=== PATIENT | male | born 1985 | race Caucasian/White ===

== ENCOUNTER 2018-03-08 07:09 | Emergency (ER) | payer SELFPAY ==
[2018-03-08 07:16] VITALS: BP 130/83; PULSE 73; RESP 20; TEMP 36.8; O2SAT 99; BMI 20.7
--- NOTE | 2018-03-08 07:28 | ED.DENTAL ---
HPI - Dental/Oral General Chief complaint: Dental/Oral Stated complaint: face/lip swollen thinks maybe tooth infection Time Seen by Provider: 03/08/18 07:19 Source: patient Mode of arrival: ambulatory Limitations: no limitations History of Present Illness HPI Narrative: Patient is a 32-year-old male who presents with a facial swelling. He said he has had some in front dental pain the last 3 days however last night he started feeling like his face was swollen. This morning he woke up and his entire upper lip spreading up into his his cheek bones is quite swollen. He has not had any fever. No difficulty breathing. He has been taking ibuprofen without much relief MD Complaint: tooth pain Location: Tooth # (7) Duration: constant Severity: moderate Relieving factors: nothing Context: history of dental caries Treatment prior to arrival: none Related Data Home Medications Medication Instructions Recorded Confirmed aspirin 325 mg PO PRN #0 08/27/11 Previous Rx's Medication Instructions Recorded amoxicillin-pot clavulanate 1 tab PO Q12H #14 tab 03/08/18 [Augmentin] Allergies Allergy/AdvReac Type Severity Reaction Status Date / Time No Known Drug Allergies Allergy Verified 03/08/18 07:36 Review of Systems Review of Systems All systems reviewed & are unremarkable except as noted in HPI and below Constitutional Denies chills, Denies fever(s), Denies lethargy and Denies weakness ENT Ears, Nose, Mouth, and Throat: Reports as per HPI, Reports facial pain and Reports lip swelling Cardiovascular Denies chest pain, Denies irregular heart rhythm, Denies lightheadedness, Denies palpitations, Denies dyspnea, Denies dyspnea on exertion and Denies orthopnea Respiratory Denies cough, Denies dyspnea, Denies dyspnea on exertion and Denies wheezing Gastrointestinal Gastrointestinal: Denies abdominal pain, Denies change in bowel habits, Denies diarrhea, Denies nausea and Denies vomiting Musculoskeletal Denies back pain, Denies muscle weakness, Denies numbness and Denies tingling Integumentary/Breasts Denies pruritus, Denies erythema, Denies rash and Denies wounds Neurologic Denies numbness, Denies tingling and Denies weakness Endocrine Denies palpitations Allergic/Immunologic Reports lip swelling and Denies wheezing PFSH Family History Mother Age: 55 Diabetes mellitus Social History Smoking Status: Current every day smoker alcohol intake: current substance use type: marijuana Exam Initial Vital Signs Initial Vital Signs: Vital Signs Temperature 98.2 F 03/08/18 07:16 Pulse Rate 73 03/08/18 07:16 Respiratory Rate 20 03/08/18 07:16 Blood Pressure 130/83 03/08/18 07:16 Pulse Oximetry 99 12 07:16 GENERAL: Well-appearing, well-nourished and in no acute distress. HEENT: Head atraumatic,EOMI, pupils reactive, right upper lip swollen with swelling spreading of to just below the eye no erythema no dental abscess appreciated though he does have multiple dental caries on lower part. No trismus. CARDIOVASCULAR: Regular rate and rhythm without murmurs, rubs or gallops. RESPIRATORY: Breath sounds equal bilaterally, no wheezes rales or rhonchi. No stridor ABDOMEN: Soft, nontender. : No CVA tenderness EXTREMITIES: Normal range of motion, no clubbing or edema. Neurovascularly intact NEUROLOGICAL: Alert and oriented x4.Normal gait and speech. Cranial nerves II through XII grossly intact. SKIN: Warm, dry, no laceration, no petechiae, no rashes or lesions. Course Orders Ordered: ED Orders 03/08/18 07:30 Basic Metabolic Panel Stat Complete Blood Count AUTO DIFF Stat Discontinued Medications Dexamethasone (Decadron) 10 mg IV NOW ONE Stop: 03/08/18 07:26 Last Admin: 03/08/18 07:37 Dose: 10 mg Ampicillin Sodium/Sulbactam (Sodium 3 gm/ Sodium Chloride) 100 mls @ 100 mls/hr IV NOW ONE Stop: 03/08/18 07:26 Last Infusion: 03/08/18 08:45 Dose: 0 mls/hr Admin: 03/08/18 07:37 Dose: 100 mls/hr Vital Signs - 8 hr 03/08/18 07:16 03/08/18 08:46 Temperature 98.2 F Pulse Rate 73 88 Respiratory Rate 20 20 Blood Pressure 130/83 126/77 Pulse Oximetry 99 100 [facility] - Dental/Oral Lab Data Attestation: I reviewed the patient's lab results. Result diagrams: 03/08/18 07:30 03/08/18 07:30 Lab Results 03/08/18 03/08/18 Range/Units 07:30 07:30 WBC 14.0 H (4.5-11.0) X10^3/uL RBC 4.46 L (4.5-5.9) X10^6/uL Hgb 13.9 (13.5-17.5) g/dL Hct 41.7 (41-53) % MCV 93.5 (80-100) fL MCH 31.1 (26-34) PG MCHC 33.3 (30-36) % RDW 13.3 (11.6-14.8) % Plt Count 201 (150-400) X10^3/uL Neut % (Auto) 78.2 H (50-75) % Lymph % (Auto) 10.1 L (25-40) % [place] % (Auto) 8.8 (3-14) % Eos % (Auto) 2.4 (2-4) % Baso % (Auto) 0.5 (0-2) % Neut # (Auto) 19294 H (7537-0016) /uL Sodium 139 (137-145) mmol/L Potassium 4.0 (3.4-5.1) mmol/L Chloride 103 (98-107) mmol/L Carbon Dioxide 27 (22-32) mmol/L BUN 8 L (9-20) mg/dL Creatinine 0.80 (0.66-1.25) mg/dL Estimated GFR > 60.0 (>60) mL/min BUN/Creatinine Ratio 10.0 (6-22) Glucose 110 H (70-100) mg/dL Calcium 9.1 (8.4-10.2) mg/dL Discharge Plan Departure Patient Disposition: Home Clinical Impression: Dental abscess Discharge Date/Time: 03/08/18 08:47 Interventions: ED Discharge Assessment Last Done: 03/08/18 08:46 Instructions: Tooth Abscess Activity Restrictions/Additional Instructions: *You have been diagnosed with dental abscess *What to do: Facial swelling is likely from a tooth infection. It should start to improve in the next 1-2 days *Continue to take medications as directed: FAXED TO [facility] [place] Augmentin 875 twice a day for 7 days Motrin 800 mg every 8 hr with food *Follow up with your primary care provider in 2-3 days *Return to ER if you should have worsening swelling, redness, difficulty breathing or any new, worsening or concerning symptoms Prescriptions: New amoxicillin-pot clavulanate [Augmentin] 875-125 mg tablet 1 tab PO Q12H Qty: 14 RF: 0 No Action aspirin 325 MG tablet,delayed release (DR/EC) 325 mg PO PRN Qty: 0 RF: 0
[2018-03-08] MEDS: DEXAMETHASONE 10 MG/ML VIAL IV (07:37)
[2018-03-08] MEDS: AMPICILLIN/SULBACTAM 3 GM 3 GM in SODIUM CHLORIDE 0.9% 100 ML IV (07:37)
[2018-03-08 07:42] LABS: Add Manual Diff / Slide Review NO; Basophils Percent Auto 0.5 % (0-2); Eosinophils Percent Auto 2.4 % (2-4); Hematocrit 41.7 % (41-53); Hemoglobin 13.9 g/dL (13.5-17.5); Lymphocytes Percent Auto 10.1 % (25-40); Mean Corpuscular HGB Conc 33.3 % (30-36); Mean Corpuscular Hemoglobin 31.1 PG (26-34); Mean Corpuscular Volume 93.5 fL (80-100); Monocytes Percent Auto 8.8 % (3-14); Neutrophils Absolute Auto 10900 /uL (3000-5900); Neutrophils Percent Auto 78.2 % (50-75); Platelet Count 201 X10^3/uL (150-400); Red Blood Cell Count 4.46 X10^6/uL (4.5-5.9); Red Cell Distribution Width 13.3 % (11.6-14.8)
[2018-03-08 07:52] LABS: Blood Urea Nitrogen 8 mg/dL (9-20); Calcium 9.1 mg/dL (8.4-10.2); Carbon Dioxide 27 mmol/L (22-32); Chloride 103 mmol/L (98-107); Estimated Glomerular Filt Rate > 60.0 mL/min (>60); Glucose 110 mg/dL (70-100); HEMOLYSIS < 15 (0-50); Sodium 139 mmol/L (137-145)
[2018-03-08 08:46] VITALS: BP 126/77; PULSE 88; RESP 20; O2SAT 100
== END 2018-03-08 08:47 | disposition home or self-care (01) ==
PROVIDERS: Emergency Provider Emergency Medicine
DX: K04.7 Periapical abscess without sinus (principal)
CPT/HCPCS: 36415; 36591; 80048; 85025; 96365; 96375; 99283; 99284; J0295; J1100

== ENCOUNTER 2018-09-11 14:06 | Emergency (ER) | payer OTHER, SELFPAY ==
[2018-09-11 14:13] VITALS: BP 118/68; PULSE 81; RESP 18; TEMP 36.8; O2SAT 97; BMI 21.4
--- NOTE | 2018-09-11 14:20 | DI.RAD.S_ITS ---
PROCEDURE: XR FOREARM RT 2V INDICATIONS: R arm pain and swelling TECHNIQUE: 2 views of the forearm were acquired. COMPARISON: None. FINDINGS: Bones: No fractures or dislocations. No suspicious bony lesions. Soft tissues: No suspicious soft tissue calcifications or masses. IMPRESSION: Source of pain and swelling is not seen. Dictated by: Preston Reyes M.D. on 09/11/2018 at 14:39 Approved by: Preston Reyes M.D. on 09/11/2018 at 14:39
[2018-09-11] MEDS: KETOROLAC 60 MG/2 ML VIAL IM (15:07)
--- NOTE | 2018-09-11 15:36 | ED_ITS ---
HPI - Extremity Injury (Upper) <JUNIOR Joseph - Last Filed: 09/11/18 15:49> General Chief Complaint: Extremity Injury, Upper Stated Complaint: Hurt right wrist Time Seen by Provider: 09/11/18 14:42 Source: patient Mode of arrival: ambulatory Limitations: no limitations History of Present Illness HPI narrative: The patient is a 33-year-old male current smoker with history of TBI who presents with chief complaint of right forearm pain. He states he was lifting something heavy and felt pain below his right wrist. He denies any wrist pain. He has not taken anything for his pain. He notes swelling. He states this happened 2 days ago. He is concerned about a soft tissue injury. He denies any falls or any other trauma. He has not taken any ibuprofen or Tylenol or applied ice. He denies any bruising redness or rash Related Data Home Medications Medication Instructions Recorded Confirmed aspirin 325 mg PO PRN #0 08/27/11 Allergies Allergy/AdvReac Type Severity Reaction Status Date / Time No Known Drug Allergies Allergy Verified 03/08/18 07:36 Review of Systems <JUNIOR Joseph - Last Filed: 09/11/18 15:49> Review of Systems GENERAL: Denies chills, fatigue, malaise, fever, sweats. HEENT: Denies sinus pain, ear pain, sore throat, difficulty swallowing, dizziness. RESPIRATORY: Denies dyspnea, cough, wheezing, hemoptysis, sputum. CARDIOVASCULAR: Denies chest pain, palpitations, orthopnea, edema, GASTROINTESTINAL: Denies nausea, vomiting, abdominal pain, diarrhea, constipation, melena. : Denies dysuria, frequency, incontinence, hematuria, urinary retention. MUSCULOSKELETAL: See HPI SKIN: Denies rash, skin lesions, or other NEUROLOGIC: Denies weakness, headache, numbness, change in speech, confusion, seizures, incoordination. PSYCHIATRIC: No concerning psychosocial issues. 12 point review of systems is negative except for those stated above PFSH <JUNIOR Joseph - Last Filed: 09/11/18 15:49> Family History (Updated 12/22/14 @ 00:00 by Conversion Provider) Mother Age: 55 Diabetes mellitus Social History Smoking Status: Current every day smoker alcohol intake: current substance use type: marijuana Family History (Updated 12/22/14 @ 00:00 by Conversion Provider) Mother Age: 55 Diabetes mellitus Social History Smoking Status: Current every day smoker alcohol intake: current substance use type: marijuana Exam <JUNIOR Joseph - Last Filed: 09/11/18 15:49> Narrative Exam Narrative: GENERAL: This is a well-nourished, well-developed patient, no acute distress HEAD: Atraumatic. Normocephalic. No temporal or scalp tenderness. EYES: Pupils equal round and reactive. Extraocular motions intact. No scleral icterus. No injection or drainage. ENT: Nose without bleeding, purulent drainage or septal hematoma. Throat without erythema, tonsillar hypertrophy or exudate. Uvula midline. Airway patent. NECK: Trachea midline. No JVD or lymphadenopathy. Supple, nontender, no meningeal signs. CARDIOVASCULAR: Regular rate and rhythm RESPIRATORY: No cough. No increased respiratory effort. No accessory muscle use. EXTREMITIES: Pain to palpation right forearm. Slight swelling noted 6 cm distal to wrist. Able to flex extend pronate and supinate right forearm. Capillary refill less than 2 seconds right forearm. Positive radial pulse right hand no pain to palpation right wrist. No snuffbox tenderness. BACK: Nontender without deformity or crepitance. No flank tenderness. NEURO: AOx3. SKIN: No erythema rash abrasion laceration noted right forearm Initial Vital Signs Initial Vital Signs: Vital Signs Temperature 98.2 F 09/11/18 14:13 Pulse Rate 81 09/11/18 14:13 Respiratory Rate 18 09/11/18 14:13 Blood Pressure 118/68 09/11/18 14:13 Pulse Oximetry 97 09/11/18 14:13 <Vianca Walker DO - Last Filed: 09/11/18 19:24> Initial Vital Signs Initial Vital Signs: Vital Signs Temperature 98.2 F 09/11/18 14:13 Pulse Rate 81 09/11/18 14:13 Respiratory Rate 18 09/11/18 14:13 Blood Pressure 118/68 09/11/18 14:13 Pulse Oximetry 97 09/11/18 14:13 Course <JUNIOR Joseph - Last Filed: 09/11/18 15:49> Orders Ordered: ED Orders 09/11/18 14:20 XR forearm RT 2V Stat Discontinued Medications Ketorolac Tromethamine (Toradol) 60 mg IM NOW ONE Stop: 09/11/18 14:54 Last Admin: 09/11/18 15:07 Dose: 60 mg Vital Signs - 8 hr 09/11/18 14:13 09/11/18 15:55 Temperature 98.2 F Pulse Rate 81 79 Respiratory Rate 18 16 Blood Pressure 118/68 132/80 Pulse Oximetry 97 98 <Vianca Walker DO - Last Filed: 09/11/18 19:24> Orders Ordered: ED Orders 09/11/18 14:20 XR forearm RT 2V Stat Discontinued Medications Ketorolac Tromethamine (Toradol) 60 mg IM NOW ONE Stop: 09/11/18 14:54 Last Admin: 09/11/18 15:07 Dose: 60 mg Vital Signs - 8 hr 09/11/18 14:13 09/11/18 15:55 Temperature 98.2 F Pulse Rate 81 79 Respiratory Rate 18 16 Blood Pressure 118/68 132/80 Pulse Oximetry 97 98 MDM - Extremity Injury (Upper) <JUNIOR Joseph - Last Filed: 09/11/18 15:49> Imaging Data Forearm x-ray: Radiologist's impression: [place] [address] XRay Report Signed Patient: Pritesh Davis [facility]#: [id number] : 1985Acct:[id number] Age/Sex: 33 / MDate of Service: 09/11/18 Loc: ED Accession Number: [id number] Procedure: XR forearm RT 2V Ordering Provider: Vianca Walker D.O. PROCEDURE: XR FOREARM RT 2V INDICATIONS: R arm pain and swelling TECHNIQUE: 2 views of the forearm were acquired. COMPARISON: None. FINDINGS: Bones: No fractures or dislocations. No suspicious bony lesions. Soft tissues: No suspicious soft tissue calcifications or masses. IMPRESSION: Source of pain and swelling is not seen. Dictated by: Preston Reyes M.D. on 09/11/2018 at 14:39 Approved by: Preston Reyes M.D. on 09/11/2018 at 14:39 MDM Narrative Medical decision making narrative: The patient is a 33-year-old male who presents with isolated right forearm injury. He does not have fracture on x- ray. He does have swelling on exam. I discussed at length rest ice compression elevation as well as [id number] pain medications as needed and able. The patient was given Toradol in the emergency department. [employer] paperwork was filled out. Encouraged patient to follow up with a [employer] provider, and gave him contact information for the [facility] human resources advisor. The patient has no questions or concerns upon discharge. [employer] paperwork filled out. Patient released back to work. Discharge Plan Departure Patient Disposition: Home Clinical Impression: Muscle strain of forearm Qualifiers: Encounter type: initial encounter Laterality: right Qualified Code(s): S56.911A - Strain of unspecified muscles, fascia and tendons at forearm level, right arm, initial encounter Discharge Date/Time: 09/11/18 15:55 Interventions: ED Discharge Assessment Last Done: 09/11/18 15:55 Instructions: How To Perform RICE (Rest, Ice, Compress, Elevate), DI for Arm Pain Activity Restrictions/Additional Instructions: The x-ray of her forearm does not show any Fractures. The x-ray does not rule out soft tissue injury Please follow up with a [employer] provider. You can call them and they will help you find a [employer] provider. Please use rest ice compression elevation as well as [id number] pain medications as needed and able. I have also given the contact information for the [facility] human resources advisor, who can help you identify a primary care provider. Prescriptions: No Action aspirin 325 MG tablet,delayed release (DR/EC) 325 mg PO PRN Qty: 0 RF: 0 Referrals: [facility] [Outside] <Vianca Walker DO - Last Filed: 09/11/18 19:24> Cosign ED Attending Cosignature Attestation: I was immediately available in the department for consultation. This documentation has been reviewed and I agree with assessment and plan. Supervised by Vianca Walker DO
[2018-09-11 15:55] VITALS: BP 132/80; PULSE 79; RESP 16; O2SAT 98
== END 2018-09-11 15:55 | disposition home or self-care (01) ==
PROVIDERS: Emergency Provider Nurse Practitioner Family
DX: S56.911A Strain of unspecified muscles, fascia and tendons at forearm level, right arm, initial encounter (principal); X50.9XXA Other and unspecified overexertion or strenuous movements or postures, initial encounter; Y99.0 Civilian activity done for income or pay
CPT/HCPCS: 73090; 96372; 99282; 99283; J1885